=== PATIENT | female | born 1930 | race Caucasian/White ===

== ENCOUNTER → 2016-07-24 | Outpatient (CLI) | payer OTHER ==
[~2016-07-24] MED LIST: ACETAMINOPHEN650 M1 PO; ASPIRIN EC81 M1 PO; ASPIRIN81 M1 PO; ASPIRIN81 M2 PO; ASPIRIN81 MG PO; ASPIRINEC PO; ATENOLOL PO; CATAPRES0.3 MG PO; CERTAGEN PO; CIPRO PO; CITRACAL + D CA1 TA1 PO; CLONIDINE HCL0.1 MG PO; CLONIDINE HCL0.3 MG PO; COLACE PO; CORDARONE200 M1 PO; COUMADIN5 MG PO; CRESTOR5 MG PO; DAKIN'S473 M1 MC; DILT-CD180 MG PO; DILTIAZEM 24HR180 M1 PO; DILTIAZEM 24HR240 MG PO; FERRO-TIME325 MG PO; FERROUS SU324 ( 65 ) PO; FERROUS SULFATE PO; FLONASE 0.05% N16 G1; FUROSEMIDE40 MG PO; HYDRALAZINE HCL25 MG PO; HYDRALAZINE HCL50 MG PO; IMDUR-ER30 M1 PO; IMDUR-ER30 MG DOB; ISOSORBIDE DINI30 MG PO; KCL PO; KLOR-CON PO; LASIX PO; LASIX20 MG PO; LEVOTHROID100 MC1 PO; LEVOTHYROXINE100 MC1 PO; LEVOTHYROXINE112 MCG PO; LEVOTHYROXINE25 MCG PO; LEVOTHYROXINE75 MCG PO; LIPITOR PO; LISINOPRIL20 MG PO; LISINOPRIL5 MG PO; LOC PO; LOPRESSOR PO; LOTREL 5-20 MG1 CAP PO; METOPROLOL SUC100 MG PO; METOPROLOL SUCC50 MG PO; METOPROLOL TAR25 MG PO; METOPROLOL TART25 MG PO; MIRALAX17 G1 PO; MIRALAX17 GM PO; NIACIN500 M2 PO; NITROSTAT0.4 MG SL; NORVASC PO; OMEGA 3 PO; OMEPRAZOLE20 M2 PO; OYSTER CALCIUM500 MG PO; PANTOPRAZOLE SO40 MG PO; PLAVIX PO; POTASSIUM CHLO10 ME1 PO; PREDNISONE PO; PROBIOTIC PO; PROBIOTIC1 EAC2 PO; PROTONIX PO; SIMVASTATIN20 MG PO; SIMVASTATIN40 MG PO; TYLENOL325 M1 PO; VIT B-12 PO; VITAMIN B12-FO1 EACH PO; VITAMIN C500 M1 PO; XALATAN OU; ZOCOR PO; ZOCOR80 MG PO
--- NOTE | ~2016-07-24 | US6 ---
[facility] A Service of [facility] & [facility] RADIOLOGY TEXT RESULTS PATIENT: SAVANNAH JASSO LOCATION: [facility] : [birth year] UNIT #: [id number] AGE: [address]: Kyra Galicia MD SEX: F ORDER DR: [id number] [facility] [address] [place], [place] [address] [id number] O MR#: [id number] Acc #: [id number] NAME: SAVANNAH JASSO : 1930 SEX: F STUDY DATE/TIME: 07/24/2016 7:50 UNIT: [facility] ROOM: STUDY DESCRIPTION: US Abdominal Limited Attending Physician: Kyra Galicia M.D. Referring Physician: Kyra Galicia M.D. Ordering Physician: Kyra Galicia M.D. Primary Care Physician: Kyra Galicia M.D. MEDICAL IMAGING REPORT This report is preliminary unless electronic signature is present EXAM Right upper quadrant ultrasound. INDICATION Right upper quadrant pain. FINDINGS The patient's pancreas appears unremarkable. The liver is homogeneous in echotexture. No focal hepatic lesions are seen. There is no intra- or extrahepatic biliary patient. Multiple shadowing stones are identified within the contracted gallbladder. There is no definite gallbladder wall thickening to suggest acute cholecystitis. These stones do appear to be new when compared to a prior ultrasound from August 08, 2012. I do think the patient's right kidney is somewhat atrophic in appearance with cortical thinning, but I do not see any solid or cystic renal masses, and there is no hydronephrosis. IMPRESSION 1. Multiple shadowing stones are identified within the gallbladder. This is a new finding when compared to a prior ultrasound from August of 2012, and on patient's most recent CT from March 2016, I also do not clearly identify any stones. However, there is no evidence of acute cholecystitis at this time. 2. The patient's right kidney appears mildly atrophic, which may reflect some underlying chronic medical renal disease. Dictated by... Ernestina Brady M.D. THIS IS AN ELECTRONICALLY VERIFIED REPORT Ernestina Brady M.D. at 07/28/2016 8:02 AM [facility] A Service of [facility] RADIOLOGY TEXT RESULTS PATIENT: SAVANNAH JASSO LOCATION: [facility] : [birth year] UNIT #: [id number] AGE: [address]: Kyra Galicia MD SEX: F ORDER DR: Saw TD: 07/24/2016 17:07 JOB #: [id number] MEDICAL IMAGING REPORT Page 1 of 1 COPY
== END | disposition home or self-care (01) ==
LOC: CWCC 07:33
DX: R10.11 Right upper quadrant pain (principal); R10.13 Epigastric pain; K80.20 Calculus of gallbladder without cholecystitis without obstruction; N26.1 Atrophy of kidney (terminal)
CPT/HCPCS: 76705

== ENCOUNTER → 2016-08-05 | Outpatient (CLI) | payer OTHER ==
--- NOTE | ~2016-08-05 | EKG ---
PATIENT: SAVANNAH JASSO UNIT #: [id number] Ventricular Rate: 103 BPM Atrial Rate: 119 BPM QRS Duration: 124 ms Q-T Interval: 384 ms QTC Calculation(Bezet): 503 ms Calculated R [place]: 49 degrees Calculated T [place]: -43 degrees Diagnosis Line: Atrial fibrillation with rapid ventricular Diagnosis Line: response Diagnosis Line: Right bundle branch block with repolarization Diagnosis Line: abnormality Diagnosis Line: T wave abnormality, consider inferolateral Diagnosis Line: ischemia or digitalis effect Diagnosis Line: Abnormal ECG Diagnosis Line: When compared with ECG of 10-JUL-2012 05:40, Diagnosis Line: Atrial fibrillation has replaced Sinus rhythm Diagnosis Line: Vent. rate has increased BY 51 BPM Diagnosis Line: QT has lengthened Diagnosis Line: Confirmed by EITAN HERRERA MD ([id number]) on 08/09/2016 Diagnosis Line: 3:49:50 PM INTERPRETING MD: SHARON GORDON
[2016-08-05 13:37] LABS: HEMATOCRIT 37.3 % (35.0-45.0); HEMOGLOBIN 11.8 gm/dL (12.0-16.0); MEAN CELL VOLUME 90.4 FL (83-96); MEAN CORPUSCULAR HEMOGLOBIN 28.7 PG (28-34); MEAN CORPUSCULAR HGB CONC 31.8 g/dL (30-36); MEAN PLATELET VOLUME 9.1 FL (6.5-11.5); RED BLOOD COUNT 4.12 X10e (3.90-5.30); RED CELL DISTRIBUTION WIDTH 17.8 % (11.0-15.5); WHITE BLOOD COUNT 14.6 X10e3 (4.0-10.5)
[2016-08-05 14:00] LABS: ALBUMIN SERUM 3.4 g/dL (3.5-5.0); BILIRUBIN,TOTAL 0.5 mg/dL (0.2-2.0); BUN/CREATININE RATIO 17.85; CREATININE SERUM 1.4 mg/dL (0.6-1.4); GLOM FILT RATE Estimated 33.7 mL/min (>60); POTASSIUM 3.8 mmol/L (3.5-5.1); PROTEIN TOTAL SERUM 6.8 g/dL (6.0-8.3)
== END | disposition home or self-care (01) ==
LOC: CAMB 12:20
PROVIDERS: Specialist
DX: Z01.818 Encounter for other preprocedural examination (principal)
CPT/HCPCS: 36415; 80053; 85027; 93005

== ENCOUNTER → 2016-08-11 | Day surgery (SDC) | payer OTHER ==
--- NOTE | ~2016-08-11 | OR ---
Unit #: [id number] #: [id number] Patient: SAVANNAH JASSO [id number] [place], [place] [address] [id number] O MR#: [id number] NAME: SAVANNAH JASSO ROOM: Date of Procedure: 08/11/2016 Admission Date: 08/11/2016 Surgeon: Mateo Doss M.D. : 1930 Attending Physician: Mateo Doss M.D. Primary Care Physician: Kyra Galicia M.D. OPERATIVE REPORT PREOPERATIVE DIAGNOSES Chronic cholecystitis, cholelithiasis. POSTOPERATIVE DIAGNOSES Chronic cholecystitis, cholelithiasis. PROCEDURE PERFORMED Laparoscopic cholecystectomy. ANESTHESIA General endotracheal anesthesia. 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 INDICATIONS FOR PROCEDURE An 85-year-old female, who presented to the office with postprandial nausea and right upper quadrant pain. Ultrasound revealed cholelithiasis. Biliary ductal system and liver chemistries were normal. DESCRIPTION OF PROCEDURE The patient was admitted to [facility], positively identified, transported to the operating room. After induction of general endotracheal anesthesia, she was prepped and draped in usual sterile fashion. She received antibiotics per SCIP protocol. A 5-mm infraumbilical incision was made. Veress needle was placed. Pneumoperitoneum was created. Then, a 5-mm trocar was placed. Laparoscope was introduced into the peritoneal cavity under direct vision. The epigastric and lateral ports were placed. Gallbladder was grasped and elevated. The infundibulum was retracted laterally and the triangle of Calot was dissected out clearly identifying the cystic duct, gallbladder, and cystic duct-common duct junction. Posteriorly, the cystic artery was identified and dissected free. I then swept the cystic duct upwards and there were no stones in the duct and a single clip was placed in the cystic duct as it entered the gallbladder. Three clips were placed distally and the cystic duct was sharply divided. Posteriorly, the cystic artery was doubly clipped proximally and distally and divided. I then dissected the gallbladder and liver bed using cautery dissection. Once it was freed up from its hepatic attachments, it was brought out through the Unit #: [id number] #: [id number] Patient: SAVANNAH JASSO epigastric port. There was no spillage of bile or stones and there was excellent hemostasis in the liver bed. The epigastric fascial defect was closed using a neoClose device. The closure was airtight. I then reduced the pneumoperitoneum as we removed laparoscope and trocars. 0.5% Marcaine with epinephrine was infiltrated into each trocar site. The skin was closed with 4-0 Monocryl subcuticular closure and Dermabond skin adhesive. Sponges and needle counts were correct x3. The patient tolerated the procedure well and was transported to recovery in stable condition. Findings and postoperative instructions were discussed with her daughter. Dictated by... Nicole Chris/barbara TD: 08/12/2016 01:23 JOB #: [id number] OPERATIVE REPORT Page 1 of 1 X Mateo Doss MD X PROCEDURE OPERATIVE NOTE
== END | disposition home or self-care (01) ==
LOC: CSUR 11:42
DX: K80.10 Calculus of gallbladder with chronic cholecystitis without obstruction (principal); I25.10 Atherosclerotic heart disease of native coronary artery without angina pectoris; I11.0 Hypertensive heart disease with heart failure; I50.9 Heart failure, unspecified; J44.9 Chronic obstructive pulmonary disease, unspecified; E03.9 Hypothyroidism, unspecified; M19.90 Unspecified osteoarthritis, unspecified site; I48.91 Unspecified atrial fibrillation; K21.9 Gastro-esophageal reflux disease without esophagitis; F32.9 Major depressive disorder, single episode, unspecified; E78.00 Pure hypercholesterolemia, unspecified; D64.9 Anemia, unspecified; Z87.891 Personal history of nicotine dependence; Z88.8 Allergy status to other drugs, medicaments and biological substances; Z79.899 Other long term (current) drug therapy; Z79.82 Long term (current) use of aspirin; Z95.1 Presence of aortocoronary bypass graft
CPT/HCPCS: 88304; J0690; J2405; J3010; J3490

== ENCOUNTER → 2016-09-29 | Outpatient (CLI) | payer OTHER ==
--- NOTE | ~2016-09-29 | NM19 ---
[facility] A Service of [facility] RADIOLOGY TEXT RESULTS PATIENT: SAVANNAH JASSO LOCATION: [facility] : [birth year] UNIT #: [id number] AGE: [address]: Kyra Galicia MD SEX: F ORDER DR: [id number] [facility] [address] [place], [place] [address] [id number] O MR#: [id number] Acc #: [id number] NAME: SAVANNAH JASSO : 1930 SEX: F STUDY DATE/TIME: 09/29/2016 9:12 UNIT: [facility] ROOM: STUDY DESCRIPTION: UT Gastric Emptying Study Attending Physician: Kyra Galicia M.D. Referring Physician: Kyra Galicia M.D. Ordering Physician: Kyra Galicia M.D. Primary Care Physician: Kyra Galicia M.D. MEDICAL IMAGING REPORT This report is preliminary unless electronic signature is present EXAM Gastric emptying scan, 09/29/2016 HISTORY Dyspepsia and mid epigastric abdominal pain, hurts to eat, dry heaves, nausea, weight loss and belching symptoms for 6 months. FINDINGS The patient ingested 570 microcuries of technetium 99m tagged sulfur colloid in eggs. Images of the upper abdomen were obtained for 75 minutes. The gastric half-emptying time was calculated to be 55 minutes (normal is between 65 and 90 minutes). IMPRESSION Rapid gastric half emptying time of 55 minutes Dictated by... Manny Randhawa M.D. THIS IS AN ELECTRONICALLY VERIFIED REPORT Manny Randhawa M.D. at 09/30/2016 8:20 AM DENISE/adair TD: 09/29/2016 15:07 JOB #: [id number] MEDICAL IMAGING REPORT Page 1 of 1 COPY
== END | disposition home or self-care (01) ==
LOC: CNUC 08:36
DX: R10.13 Epigastric pain (principal)
CPT/HCPCS: 78264; A9541

== ENCOUNTER → 2016-10-20 | Day surgery (SDC) | payer OTHER ==
--- NOTE | ~2016-10-20 | OR ---
Unit #: [id number] #: [id number] Patient: SAVANNAH JASSO [id number] [address] [address] [id number] O MR#: [id number] NAME: SAVANNAH JASSO ROOM: Date of Procedure: 10/20/2016 Admission Date: 10/20/2016 Surgeon: Sundar Castro M.D. : 1930 Attending Physician: Sundar Castro M.D. Primary Care Physician: Kyra Galicia M.D. OPERATIVE REPORT PROCEDURE PERFORMED Esophagogastroduodenoscopy with biopsy. INDICATIONS FOR PROCEDURE An 85-year-old female with significant epigastric and right upper quadrant pain, chronic GERD symptoms, also had intermittent dysphagia, undergoing evaluation of an upper endoscopy. MEDICATIONS Monitored anesthesia. POSTOPERATIVE FINDINGS 1. Small hiatal hernia, otherwise normal esophagus. 2. Gastric antral ulcer about 1 cm crater along the lesser curvature. 3. Diffuse gastritis, biopsies taken. 4. Normal duodenum and distal duodenum. PLAN PPIs to continue. Treatment of H pylori if positive. DESCRIPTION OF PROCEDURE The patient was explained of the procedure, risks, and benefits along with the risks and benefits of anesthesia. She was brought to the endoscopy room. Propofol anesthesia was given. Bite block was placed. The scope was passed down the mouth into the esophagus, stomach, duodenum and distal duodenum. Findings as described. Biopsies taken. Gently, I pulled it out of the patient's mouth. She tolerated it well. Dictated by... Nicole Gaitan/barbara TD: 10/20/2016 21:02 JOB #: [id number] Unit #: [id number] #: [id number] Patient: SAVANNAH JASSO OPERATIVE REPORT Page 1 of 1 X Sundar Castro MD PROCEDURE OPERATIVE NOTE
== END | disposition home or self-care (01) ==
LOC: COPS 07:43
DX: K25.9 Gastric ulcer, unspecified as acute or chronic, without hemorrhage or perforation (principal); K44.9 Diaphragmatic hernia without obstruction or gangrene; M19.90 Unspecified osteoarthritis, unspecified site; I10 Essential (primary) hypertension; I48.91 Unspecified atrial fibrillation; K21.9 Gastro-esophageal reflux disease without esophagitis; D64.9 Anemia, unspecified; Z86.010 Personal history of colon polyps; Z88.8 Allergy status to other drugs, medicaments and biological substances; Z79.82 Long term (current) use of aspirin; Z79.01 Long term (current) use of anticoagulants; Z79.899 Other long term (current) drug therapy; Z95.1 Presence of aortocoronary bypass graft; Z98.890 Other specified postprocedural states
CPT/HCPCS: 88305; 88312

== ENCOUNTER → 2016-11-16 | Outpatient (CLI) | payer OTHER ==
[2016-11-16 15:37] LABS: HEMATOCRIT 37.7 % (35.0-45.0); HEMOGLOBIN 12.7 gm/dL (12.0-16.0); MEAN CELL VOLUME 91.8 FL (83-96); MEAN CORPUSCULAR HEMOGLOBIN 30.9 PG (28-34); MEAN CORPUSCULAR HGB CONC 33.6 g/dL (30-36); MEAN PLATELET VOLUME 8.6 FL (6.5-11.5); RED BLOOD COUNT 4.11 X10e (3.90-5.30); RED CELL DISTRIBUTION WIDTH 15.6 % (11.0-15.5); WHITE BLOOD COUNT 10.5 X10e3 (4.0-10.5)
[2016-11-16 15:56] LABS: ALBUMIN SERUM 3.7 g/dL (3.5-5.0); BILIRUBIN,TOTAL 0.7 mg/dL (0.2-2.0); BUN/CREATININE RATIO 22.3; CREATININE SERUM 1.3 mg/dL (0.6-1.4); GLOM FILT RATE Estimated 36.9 mL/min (>60); POTASSIUM 3.8 mmol/L (3.5-5.1); PROTEIN TOTAL SERUM 7.3 g/dL (6.0-8.3)
== END | disposition home or self-care (01) ==
LOC: CLAB 15:01
PROVIDERS: Internal Medicine
DX: R63.0 Anorexia (principal); R63.4 Abnormal weight loss
CPT/HCPCS: 36415; 80053; 85027; 86140